=== PATIENT | female | born 1995 | race Caucasian/White ===

== ENCOUNTER 2021-09-06 12:57 | Emergency (ER) | payer OTHER ==
[2021-09-06 13:10] VITALS: BP 94/66; PULSE 97; TEMP 98.5; BMI 21.4
== END 2021-09-06 14:40 | disposition home or self-care (01) ==
LOC: JER 12:57 → JERFT 12:57
DX: S61.214A Laceration without foreign body of right ring finger without damage to nail, initial encounter (principal); S61.212A Laceration without foreign body of right middle finger without damage to nail, initial encounter; W26.8XXA Contact with other sharp object(s), not elsewhere classified, initial encounter
CPT/HCPCS: 99281-25

== ENCOUNTER 2021-09-08 16:07 | Emergency (ER) | payer OTHER ==
[2021-09-08 16:20] VITALS: BP 101/71; PULSE 88; TEMP 98.6; BMI 21.4
== END 2021-09-08 18:33 | disposition home or self-care (01) ==
LOC: JERFT 16:07
DX: S61.211A Laceration without foreign body of left index finger without damage to nail, initial encounter (principal); Y99.9 Unspecified external cause status; Z48.00 Encounter for change or removal of nonsurgical wound dressing
CPT/HCPCS: 99281-25

== ENCOUNTER 2021-10-06 05:58 | Emergency (ER) | payer OTHER ==
[2021-10-06 06:44] VITALS: BP 120/84; PULSE 90; RESP 17; TEMP 98.1; BMI 22.2
[2021-10-06] MEDS ORDERED: ONDANSETRON *ODT* 4 MG TABLET SL ONE (07:40)
[2021-10-06] MEDS ORDERED: SODIUM CHLORIDE 0.9% 500 ML INFUS.BAG IV ONE (07:40)
[2021-10-06] MEDS ORDERED: FAMOTIDINE 20 MG/50 ML IVPB 20 MG/50 ML MG IVPB ONE ×2 (07:40→08:02)
[2021-10-06] MEDS ORDERED: ONDANSETRON 4 MG/2 ML VIAL ONE (08:02)
[2021-10-06 09:09] LABS: CHLORIDE 101 mmol/L (98-107); SODIUM 133 mmol/L (136-145)
[2021-10-06 09:11] LABS: CALCIUM 9.2 mg/dL (8.5-10.1)
[2021-10-06 09:12] LABS: ALBUMIN 3.8 g/dl (3.4-5.0); BLOOD UREA NITROGEN 12.9 mg/dL (7-18); CO2 19 mmol/L (21-32); GLUCOSE,RANDOM 71 mg/dL (74-106)
[2021-10-06 09:15] LABS: CREATININE 0.6 mg/dL (0.55-1.3); SGOT/AST 58 U/L (15-37); SGPT/ALT 24 U/L (13-61)
[2021-10-06 09:17] LABS: BASO % 0.8 % (0-2.0); BILIRUBIN,TOTAL 0.8 mg/dL (0.2-1); EOS % 0.3 % (0-4.5); HEMOGLOBIN 14.6 GM/dL (10.7-15.3); LYMPH % 12.8 % (8-40); MCH 31.2 pg (25.7-33.7); MCHC 34.1 g/dl (32.0-36.0); MEAN CELL VOLUME 91.7 fl (80-96); MEAN PLT VOLUME 9.4 fl (7.5-11.1); MONO % 2.8 % (3.8-10.2); NEUT % 83.3 % (42.8-82.8); PLATELET COUNT 248 10^3/uL (134-434); RBC 4.69 M/mm3 (3.60-5.2); RDW 13.3 % (11.6-15.6); TOT PROT 8.6 g/dl (6.4-8.2); WHITE BLOOD COUNT 9.3 K/mm3 (4.0-10.0)
[2021-10-06 09:18] LABS: ALK PHOS 60 U/L (45-117)
[2021-10-06 09:22] LABS: ANION GAP 13 MMOL/L (8-16)
[2021-10-06 09:23] LABS: PLATELET ESTIMATE ADEQUATE
[2021-10-06 11:31] LABS: CALCIUM 8.1 mg/dL (8.5-10.1)
[2021-10-06 11:34] LABS: HCG,QUALITATIVE URINE Negative
[2021-10-06 11:35] LABS: CREATININE 0.4 mg/dL (0.55-1.3)
[2021-10-06 11:36] LABS: EPI CELLS 7 /uL (0-25.1); HYALINE CASTS 2 /uL (0-3.1); PH,URINE 5.5 (5.0-8.0); URINE APPEARANCE CLEAR; URINE BACTERIA 45 /uL (0-1359); URINE BILIRUBIN NEGATIVE (NEGATIVE); URINE COLOR YELLOW; URINE GLUCOSE (UA) NEGATIVE (NEGATIVE); URINE KETONE 4+ (NEGATIVE); URINE LEUK ESTERASE NEGATIVE (NEGATIVE); URINE NITRITE NEGATIVE (NEGATIVE); URINE PROTEIN TRACE (NEGATIVE); URINE RBC 23 /uL (0-23.9); URINE WBC 11 /uL (0-25.8)
== END 2021-10-06 11:30 | disposition home or self-care (01) ==
LOC: JER 05:58
PROC: 3E033NZ Introduction of Analgesics, Hypnotics, Sedatives into Peripheral Vein, Percutaneous Approach (ICD-10-PCS; principal; 2021-10-06)
DX: K21.9 Gastro-esophageal reflux disease without esophagitis (principal)
CPT/HCPCS: 36415; 80048; 80053; 81003; 84703; 85025; 87086; 99284-25; C9803-CS; Q0162; U0003; U0005